=== PATIENT | female | born 1985 | race Caucasian/White ===

== ENCOUNTER 2024-05-19 00:43 | Inpatient (IN) | payer OTHER ==
[~2024-05-19] VITALS: Ht 162.5 cm; Wt 120.3 kg
[2024-05-19] VITALS (7 sets, daily range): BP systolic 147–180; BP diastolic 88–119
[~2024-05-19 00:43] MED LIST: BUPRENORPHINE HY8 MG SL; CLINDAMYCIN HC300 MG PO; MACROBID100 M1 PO; PRENATAL1 TA3 PO
[2024-05-19 02:11] LABS: BASO % 0.4 % (0.0-1.0); EOS # 0.2 10*3/uL (0.0-0.4); EOS % 1.7 % (1.0-4.0); HEMATOCRIT 42.6 % (37.0-47.0); LYMPH # 4.2 10*3/uL (1.3-4.4); LYMPH % 47.4 % (27.0-41.0); MEAN CELL VOLUME 89.5 fl (81.0-99.0); MEAN CORPUSCULAR HGB 31.5 pg (27.0-31.0); MEAN CORPUSCULAR HGB CONC 35.2 g/dl (33.0-37.0); MEAN PLATELET VOLUME 10.5 fl (9.6-12.3); MONO # 0.4 10*3/uL (0.1-1.0); MONO % 4.6 % (3.0-9.0); NEUT # 4.1 10*3/uL (2.3-7.9); NEUT % 45.6 % (47.0-73.0); NUCLEATED RED BLOOD CELL 0.3 % (0.0-0.0); PLATELET COUNT AUTOMATED 175 10*3/uL (130-400); RED BLOOD COUNT 4.76 10*6/uL (4.10-5.10); RED CELL DISTRI WIDTH 12.8 % (0-14.5); WHITE BLOOD COUNT 8.9 10*3/uL (4.8-10.8)
[2024-05-19 02:14] LABS: ALKALINE PHOSPHATASE 87 U/L (46-116); BUN 7 mg/dl (9-23); CHLORIDE 107 mmol/L (98-107); LIPASE 52 U/L (12-53); POTASSIUM 4.4 mmol/L (3.4-5.1); SGPT/ALT 517 U/L (5-49); TOTAL PROTEIN 7.6 gm/dL (6.0-8.0)
[2024-05-19] MEDS ORDERED: ADDERALL 20 MG20 MG PO (05:40)
[2024-05-19] MEDS ORDERED: HYDROXYZINE PAM25 M1 PO (05:41)
[2024-05-19] MEDS ORDERED: HYDROCHLOROTHIA25 M1 PO (05:41)
[2024-05-19] MEDS ORDERED: VRAYLAR1.5 MG PO (05:41)
[2024-05-19 06:05] LABS: BILIRUBIN Negative (Negative); BLOOD 2+ (Negative); CLARITY Cloudy (Clear); COLOR Yellow (Yellow); GLUCOSE Negative (Negative); KETONE Negative (Negative); LEUKO ESTERASE Trace (Negative); NITRITE Negative (Negative); PH 5.5 (4.5-8.0); SPECIFIC GRAVITY 1.015 (1.001-1.030); UROBILINOGEN 0.2 E.U./dl (0.0-1.0)
[2024-05-19] MEDS ORDERED: Magnesium Hydroxide 30 ML UDC PO PRN (06:15)
[2024-05-19] MEDS ORDERED: MORPHINE Sulfate 2 MG/ML SYR IV PRN (06:15)
[2024-05-19] MEDS ORDERED: BISACODYL 10 MG SUPP R PRN (06:15)
[2024-05-19] MEDS ORDERED: BISACODYL 5 MG TAB PO PRN (06:15)
[2024-05-19] MEDS ORDERED: Labetalol Hydrochloride 20 MG/4 ML SYR IV ONE (06:15)
[2024-05-19] MEDS ORDERED: Ondansetron Hydrochloride 4 MG/2 ML VIAL IV PRN (06:15)
[2024-05-19] MEDS ORDERED: TEMAZEPAM 15 MG CAP PO PRN (06:15)
[2024-05-19 06:42] LABS: RBC 16-20 rbc/hpf (0-2)
[2024-05-19 06:43] LABS: BACTERIA 3+
[2024-05-19 09:41] LABS: URINE AMPHETAMINES Negative (1000ng/ml); URINE BARBITURATES Negative (200ng/ml); URINE BENZODIAZEPINES Negative (200ng/ml); URINE CANNABINOIDS (THC) Negative (50ng/ml); URINE COCAINE Negative (300ng/ml); URINE METHADONE Negative (300ng/ml); URINE OPIATES Negative (300ng/ml); URINE PHENCYCLIDINE Negative (25ng/ml)
[2024-05-19] MEDS ORDERED: MULTIVITAMIN IV ONE (09:49)
[2024-05-19] MEDS ORDERED: SODIUM CHLORIDE IV ONE (09:49)
[2024-05-19] MEDS ORDERED: HYDROCHLOROTHIAZIDE 25 MG TAB PO SCH (10:00)
[2024-05-19] MEDS ORDERED: Enoxaparin Sodium 40 MG/0.4 ML SYR SC SCH (10:00)
[2024-05-19] MEDS ORDERED: hydrOXYzine hydrochloride 10 MG TAB PO ONE (11:10)
[2024-05-19] MEDS ORDERED: hydrOXYzine pamoate 25 MG CAP PO PRN (12:05)
[2024-05-19] MEDS ORDERED: amLODIPine besylate 5 MG TAB PO SCH (12:10)
[2024-05-19] MEDS ORDERED: Amphetamine Salt Combination 5 MG TAB PO SCH (16:30)
[2024-05-20] VITALS: BP 144/84
[2024-05-20 03:54] VITALS: BP 146/86; BP 158/98
[2024-05-20] MEDS ORDERED: Pantoprazole Sodium 40 MG TAB PO SCH (06:00)
[2024-05-20 07:11] VITALS: BP 160/112
[2024-05-20 07:15] VITALS: BP 172/114
[2024-05-20 07:17] LABS: BASO % 0.4 % (0.0-1.0); EOS # 0.1 10*3/uL (0.0-0.4); EOS % 1.7 % (1.0-4.0); HEMATOCRIT 49.3 % (37.0-47.0); LYMPH # 2.1 10*3/uL (1.3-4.4); LYMPH % 28.2 % (27.0-41.0); MEAN CORPUSCULAR HGB 30.8 pg (27.0-31.0); MEAN CORPUSCULAR HGB CONC 32.3 g/dl (33.0-37.0); MEAN PLATELET VOLUME 10.7 fl (9.6-12.3); MONO # 0.4 10*3/uL (0.1-1.0); MONO % 5.5 % (3.0-9.0); NEUT # 4.6 10*3/uL (2.3-7.9); NEUT % 63.9 % (47.0-73.0); PLATELET COUNT AUTOMATED 160 10*3/uL (130-400); RED BLOOD COUNT 5.17 10*6/uL (4.10-5.10); RED CELL DISTRI WIDTH 12.3 % (0-14.5); WHITE BLOOD COUNT 7.3 10*3/uL (4.8-10.8)
[2024-05-20 07:26] LABS: ACT PARTIAL THROMBO TIME 21.8 SECONDS (20.0-32.1)
[2024-05-20 07:27] LABS: MEAN CELL VOLUME 95.4 fl (81.0-99.0)
[2024-05-20 07:40] LABS: ALKALINE PHOSPHATASE 91 U/L (46-116); BUN 5 mg/dl (9-23); CHLORIDE 98 mmol/L (98-107); CHOLESTEROL 176 mg/dL (<200); FREE T4 1.45 ng/dl (0.89-1.76); LDL CHOLESTEROL 81 mg/dL (9-159); POTASSIUM 3.5 mmol/L (3.4-5.1); SGPT/ALT 493 U/L (5-49); TOTAL PROTEIN 7.6 gm/dL (6.0-8.0); TRIGLYCERIDES 230 mg/dl (<150)
[2024-05-20 09:28] LABS: VITAMIN D, 25-HYDROXY 35.4 ng/mL (30-100)
[2024-05-20] MEDS ORDERED: LEVOFLOXACIN500 MG PO (09:35)
[2024-05-20] MEDS ORDERED: AMLODIPINE BESYL5 MG PO (09:35)
[2024-05-20] MEDS ORDERED: COZAAR25 M1 PO (09:46)
[2024-05-20] MEDS ORDERED: Buprenorphine Hydrochloride 2 MG TAB SL SCH (10:00)
[2024-05-21 07:07] LABS: HBSAG Negative (Negative); HEP B CORE AB, IGM Negative (Negative)
[2024-05-22 19:08] LABS: HEPATITIS C ANTIBODY Reactive (Non Reactive)
== END 2024-05-20 13:18 | disposition home or self-care (01) | DRG 199 ==
LOC: ED 00:43 → EDHOLD 05:36
PROVIDERS: Emergency Medicine; Internal Medicine; Student in an Organized Health Care Education/Training Program; ADMIT Internal Medicine; ATTEND Internal Medicine
DX: I16.0 Hypertensive urgency (principal); F10.920 Alcohol use, unspecified with intoxication, uncomplicated; N30.01 Acute cystitis with hematuria; E44.0 Moderate protein-calorie malnutrition; Z68.45 Body mass index [BMI] 70 or greater, adult; B18.2 Chronic viral hepatitis C; R74.01 Elevation of levels of liver transaminase levels; R73.9 Hyperglycemia, unspecified; I10 Essential (primary) hypertension; F17.210 Nicotine dependence, cigarettes, uncomplicated; Z71.6 Tobacco abuse counseling; Z88.0 Allergy status to penicillin; Z79.899 Other long term (current) drug therapy; Z79.01 Long term (current) use of anticoagulants; Z79.2 Long term (current) use of antibiotics; Z80.8 Family history of malignant neoplasm of other organs or systems; Y90.0 Blood alcohol level of less than 20 mg/100 ml